=== PATIENT | female | born 1960 | race Caucasian/White ===

== ENCOUNTER 2018-11-04 10:59 | Outpatient (CLI) | payer OTHER | END 2018-11-04 11:00 | disposition home or self-care (01) | LOC: CTENTCT 10:59 | PROVIDERS: ATTEND Otolaryngology Plastic Surgery within the Head & Neck | DX: J34.2 Deviated nasal septum (principal) | CPT/HCPCS: 70486 ==

== ENCOUNTER 2018-11-10 11:34 | Day surgery (SDC) | payer OTHER ==
[2018-11-09 16:00] VITALS: BMI 25.2
[2018-11-10] MEDS ORDERED: Oxymetazoline HCl 0.05% ( 15 ML ) ONE (12:12)
[2018-11-10] MEDS ORDERED: Lidocaine 2% w/Epinephrine 1:200K 20 ML VIAL ONE (13:23)
[2018-11-10] MEDS ORDERED: Oxymetazoline HCl 0.05% (30 ML BOT) ONE (13:24)
[2018-11-10] MEDS ORDERED: Bacitracin Zinc Ointment 30 gm TUBE ONE (13:24)
[2018-11-10] MEDS ORDERED: Midazolam HCl 2 mg/2 ml Vial ONE (13:24)
[2018-11-10] MEDS ORDERED: Fentanyl 100 MCG/2 ML VIAL ONE ×2 (13:29→14:45)
[2018-11-10] MEDS ORDERED: Hydrocodone-Acetamin 15 ML UDCUP ONE (15:46)
[2018-11-10] MEDS ORDERED: Ondansetron ODT 4 MG TAB ONE (15:52)
[2018-11-10] MEDS ORDERED: Promethazine HCl 25 MG/ML VIAL ONE (16:54)
--- NOTE | 2018-11-11 12:26 | OP ---
DATE OF PROCEDURE: 11/10/2018 PREOPERATIVE DIAGNOSES: 1. Chronic rhinosinusitis. 2. Nasal septal deviation. 3. Bilateral inferior turbinate hypertrophy. 4. Closed nasal fracture. POSTOPERATIVE DIAGNOSES: 1. Chronic rhinosinusitis. 2. Nasal septal deviation. 3. Bilateral inferior turbinate hypertrophy. 4. Closed nasal fracture. PROCEDURES PERFORMED: 1. Bilateral endoscopic sinus surgery, total ethmoidectomies. 2. Bilateral endoscopic sinus surgery, maxillary antrostomies. 3. Bilateral endoscopic sinus surgery, frontal sinusotomies. 4. Nasal septoplasty. 5. Bilateral inferior turbinate submucosal resection. 6. Closed reduction of nasal fracture. ESTIMATED BLOOD LOSS: 50 mL. COMPLICATIONS: None. ANESTHESIA: GETA. PROCEDURE IN DETAIL: Patient was taken to the operating room and placed supine on the table. General endotracheal anesthesia was obtained by the anesthesia staff. Tube was secured in the left lower lip. Patient was then placed in the beach chair position, and Afrin pledgets were placed in the nasal cavity. Injections of 1% lidocaine with 1:100,000 epinephrine were made into the nasal septum as well as the inferior turbinates. Patient was then prepped and draped in standard surgical fashion for nasal surgery. Following this, the Afrin pledgets were removed. A Mohamud incision was made on the left nasal septum. Submucoperichondrial dissection was performed. The deviated portions of the septum included portions of the cartilage and the bony septum. These isolated areas were removed using 3 cutting rongeurs. There was noted to be a large dorsal and caudal strut, left intact for support of the nose. The mucoperichondrial flaps were then reapproximated using a 4-0 gut stitch. Any straight pieces of cartilage were crushed prior to this and placed between the mucoperichondrial flaps. Following this, the inferior turbinates were then punctured with a submucosal coblation wand, and submucosal coblations were performed of multiple areas of the inferior portion of the anterior inferior turbinate. Please note that the submucosal microdebrider was used to submucosally resect the anterior and inferior portions of the inferior turbinates. Following this, the 0-degree scope was advanced into the middle meatus, where the middle turbinate was gently medialized using a [place] elevator. Following this, the uncinate process was identified and was anteriorly fractured using a ball-ended probe bilaterally. Following this, the uncinate process was removed using the 0-degree microdebrider and the up-biting Blakesley forceps bilaterally. Following this, the natural maxillary sinus ostia were identified and was gently widened using the 40-degree microdebrider and the straight Blakesley forceps bilaterally. Following this, the ethmoidal bulla was identified bilaterally and was punctured on its medial and inferior aspect using the microdebrider. The microdebrider and the up-biting Blakesley forceps were used to remove the ethmoidal bulla and opened the anterior ethmoidal sinus cells. Following this, the grand lamella was identified and was punctured into the posterior ethmoidal cells with a microdebrider bilaterally. Working from posterior to anterior, the ethmoidal cells were opened in a mucosal-sparing technique. Following this, the 45-degree scope and the curved microdebrider were used to further open the frontal recess cells and the frontal sinus ostia bilaterally. Following this, the nasal bones were remobilized using the Better[place] elevator and butter knife. Following this, the nasal bones were then reapproximated to their normal anatomic position, realigning the previously palpated displaced nasal bone fractures. Following this, the nasal cavity was irrigated. Mirapex was placed within the middle meatus. Yarbrough splints were placed internally and Castile splint was placed externally. The patient tolerated the procedure well. Job ID: [id number]
== END 2018-11-10 17:35 | disposition home or self-care (01) ==
LOC: SDC 11:34
PROVIDERS: ATTEND Otolaryngology Plastic Surgery within the Head & Neck
PROC: 099S8ZZ Drainage of Right Frontal Sinus, Via Natural or Artificial Opening Endoscopic (ICD-10-PCS; principal; 2018-11-10)
PROC: 09TU8ZZ Resection of Right Ethmoid Sinus, Via Natural or Artificial Opening Endoscopic (ICD-10-PCS; principal; 2018-11-10)
PROC: 099Q8ZZ Drainage of Right Maxillary Sinus, Via Natural or Artificial Opening Endoscopic (ICD-10-PCS; principal; 2018-11-10)
PROC: 0NSBXZZ Reposition Nasal Bone, External Approach (ICD-10-PCS; principal; 2018-11-10)
PROC: 09TL4ZZ Resection of Nasal Turbinate, Percutaneous Endoscopic Approach (ICD-10-PCS; principal; 2018-11-10)
PROC: 09SM0ZZ Reposition Nasal Septum, Open Approach (ICD-10-PCS; principal; 2018-11-10)
PROC: 099T8ZZ Drainage of Left Frontal Sinus, Via Natural or Artificial Opening Endoscopic (ICD-10-PCS; principal; 2018-11-10)
PROC: 099R8ZZ Drainage of Left Maxillary Sinus, Via Natural or Artificial Opening Endoscopic (ICD-10-PCS; principal; 2018-11-10)
PROC: 09TV8ZZ Resection of Left Ethmoid Sinus, Via Natural or Artificial Opening Endoscopic (ICD-10-PCS; principal; 2018-11-10)
DX: J32.9 Chronic sinusitis, unspecified (principal); J34.2 Deviated nasal septum; J34.3 Hypertrophy of nasal turbinates; S02.2XXA Fracture of nasal bones, initial encounter for closed fracture; E78.5 Hyperlipidemia, unspecified; J45.909 Unspecified asthma, uncomplicated; E55.9 Vitamin D deficiency, unspecified; Z79.899 Other long term (current) drug therapy; Z91.040 Latex allergy status; W19.XXXA Unspecified fall, initial encounter
CPT/HCPCS: 36415; 85014; 93005; 93010; J2250; J2550; J3010; Q0162